=== PATIENT | male | born 2005 | race Caucasian/White ===

== ENCOUNTER 2023-02-04 16:07 | Outpatient (CLI) | payer OTHER, SELFPAY | END 2023-02-04 16:08 | disposition home or self-care (01) | PROVIDERS: PCP Pediatrics; Visit Provider Family Medicine | DX: Z00.00 Encounter for general adult medical examination without abnormal findings (principal); R63.4 Abnormal weight loss; R53.83 Other fatigue; F90.2 Attention-deficit hyperactivity disorder, combined type; Z13.6 Encounter for screening for cardiovascular disorders | CPT/HCPCS: 80053; 80061; 84443 ==

== ENCOUNTER 2024-12-14 09:30 | Outpatient (CLI) | payer BC, SELFPAY | END 2024-12-14 09:31 | disposition home or self-care (01) | LOC: NFLDREF 12-19 09:35 | PROVIDERS: PCP Family Medicine; Referring Provider Family Medicine; Visit Provider Family Medicine | DX: Z13.9 Encounter for screening, unspecified (principal); Z13.6 Encounter for screening for cardiovascular disorders | CPT/HCPCS: 80053; 80061 ==